=== PATIENT | female | born 1985 | race African-American/Black ===

== ENCOUNTER 2019-07-30 12:41 | Emergency (ER) | payer SELFPAY ==
[2019-07-30] MEDS ORDERED: ONDANSETRON 4 MG TAB.RAPDIS PO ONE (13:25)
--- NOTE | 2019-07-30 13:25 | ER Document Report ---
ED Medical Screen (RME) - General Chief Complaint: Abdominal Pain Stated Complaint: ABDOMINAL PAIN Time Seen by Provider: 07/30/19 13:19 Mode of Arrival: Ambulatory Information source: Patient Notes: 34-year-old female presented to ED for complaint of severe abdominal pain intermittently over the past couple months. She states nothing triggers the abdominal pain and is worse in her upper abdomen. She states she has a past medical history of bilateral tubal Gratian uterine ablation gastric sleeve bipolar depression anxiety and ventral hernia repair. Patient is alert oriented respirations regular nonlabored speaking in full sentences. Abdomen is soft at this time. I have greeted and performed a rapid initial assessment of this patient. A comprehensive ED assessment and evaluation of the patient, analysis of test results and completion of medical decision making process will be conducted by an additional ED providers. - Related Data Allergies/Adverse Reactions: No Known Allergies Allergy (Verified 04/17/13 10:02) Past Medical History - Past Medical History Cardiac Medical History: Denies: Hx Coronary Artery Disease, Hx Heart Attack, Hx Hypertension Pulmonary Medical History: Denies: Hx Asthma, Hx Bronchitis, Hx COPD, Hx Pneumonia, Hx Tuberculosis Neurological Medical History: Denies: Hx Cerebrovascular Accident, Hx Seizures. Comment Only: Hx Migraine - not diagnosed, but pt c/o frequent headaches GI Medical History: Musculoskeltal Medical History: Denies Hx Arthritis Infectious Medical History: Past Surgical History: Reports: Hx Abdominal Surgery - Hernia repair, Hx Herniorrhaphy - Umbilical, Hx Tubal Ligation - BTL 2006. Denies: Hx Pacemaker - Immunizations Hx Diphtheria, Pertussis, Tetanus Vaccination: No Physical Exam - Vital signs Vitals: Temp Pulse Resp BP Pulse Ox 98.1 F 69 18 144/74 H 100 07/30/19 12:57 07/30/19 12:57 07/30/19 12:57 07/30/19 12:57 07/30/19 12:57 Course - Vital Signs Vital signs: Temp Pulse Resp BP Pulse Ox 98.1 F 69 18 144/74 H 100 07/30/19 13:19 07/30/19 12:57 07/30/19 12:57 07/30/19 12:57 07/30/19 12:57
[2019-07-30 13:42] LABS: ABSOLUTE BASOPHILS # (AUTO) 0.1 10^3/uL (0.0-0.2); ABSOLUTE EOSINOPHILS # (AUTO) 0.1 10^3/uL (0.0-0.6); ABSOLUTE LYMPHOCYTES (AUTO) 2.3 10^3/uL (0.5-4.7); ABSOLUTE MONOCYTES (AUTO) 0.5 10^3/uL (0.1-1.4); ABSOLUTE NEUT (AUTO) 4.3 10^3/uL (1.7-8.2); BASOPHILS % (AUTO) 1.1 % (0-2); HEMATOCRIT 39.9 % (36.0-47.0); HEMOGLOBIN 13.2 g/dL (12.0-15.5); LYMPHOCYTES % (AUTO) 31.7 % (13-45); MEAN CORPUSCULAR HEMOGLOBIN 24.7 pg (27.0-33.4); MEAN CORPUSCULAR VOLUME 75 fl (80-97); MONOCYTES % (AUTO) 6.4 % (3-13); PLATELET COUNT 301 10^3/uL (150-450); RED BLOOD COUNT 5.35 10^6/uL (3.72-5.28); SEGMENTED NEUTROPHILS % (AUTO) 59.8 % (42-78); TOTAL CELLS COUNTED % (AUTO) 100 %; WHITE BLOOD COUNT 7.2 10^3/uL (4.0-10.5)
[2019-07-30 13:48] LABS: APPEARANCE,URINE SLIGHTLY-CLOUDY; BILIRUBIN,URINE NEGATIVE (NEGATIVE); COLOR,URINE YELLOW; GLUCOSE, URINE NEGATIVE (NEGATIVE); KETONES,URINE NEGATIVE (NEGATIVE); PROTEIN,URINE NEGATIVE (NEGATIVE); URINE SPECIFIC GRAVITY 1.024; UROBILINOGEN,URINE NEGATIVE mg/dL (<2.0)
--- NOTE | 2019-07-30 13:53 | RADIOLOGY REPORT (SQ) ---
EXAM DESCRIPTION: KUB/ABDOMEN (SINGLE VIEW) IMAGES COMPLETED DATE/TIME: 07/30/2019 1:41 pm REASON FOR STUDY: Intermittent abdominal pain COMPARISON: None. NUMBER OF VIEWS: One view. TECHNIQUE: Supine radiographic image of the abdomen acquired. LIMITATIONS: None. FINDINGS: BOWEL GAS PATTERN: Normal bowel gas pattern. No dilated loops. CALCIFICATIONS: No suspicious calcifications. SOFT TISSUES: No gross mass or suggestion of organomegaly. HARDWARE: None in the abdomen. BONES: No acute fracture. No worrisome bone lesions. OTHER: No other significant finding. IMPRESSION: NO RADIOGRAPHIC EVIDENCE FOR ACUTE ABDOMINAL DISEASE. TECHNICAL DOCUMENTATION: JOB ID: [id number] 2010 [employer]- All Rights Reserved Reading location - IP/workstation name: [email or web address]
[2019-07-30 14:05] LABS: ALBUMIN 3.8 g/dL (3.5-5.0); ALKALINE PHOSPHATASE 83 U/L (38-126); ANION GAP 5 (5-19); ASPARTATE AMINO TRANSFERASE 62 U/L (14-36); BILIRUBIN,TOTAL 0.5 mg/dL (0.2-1.3); BLOOD UREA NITROGEN 14 mg/dL (7-20); CALCIUM 9.4 mg/dL (8.4-10.2); CARBON DIOXIDE 29 mmol/L (22-30); CHLORIDE 104 mmol/L (98-107); GLUCOSE 108 mg/dL (75-110); POTASSIUM 4.5 mmol/L (3.6-5.0)
--- NOTE | 2019-07-30 15:27 | ER Document Report ---
ED General - General Chief Complaint: Abdominal Pain Stated Complaint: ABDOMINAL PAIN Time Seen by Provider: 07/30/19 13:19 Mode of Arrival: Ambulatory Notes: 34-year-old female presents emergency department complaining of intermittent epigastric pain that is been going on for the past several months. States that it will last 30 minutes to an hour and then resolved. Patient states that today it is been going on intermittently for approximately 24 hours and radiates to her right flank. States that when she lifts up her arm it makes it feel somewhat better however starting last night he ate was associated with some tingling to her right arm although when she lifts her arms over her head it does feel better. The tingling in her right arm worsened when she left arm over her head and improved when she put her arm back down. Patient states she is tried a multitude of lkzh-jhe-uyafond medications including ibuprofen, acetaminophen and duplex without relief. States it does not get better with bowel movements although she feels it is likely related to her chronic constipation. Patient states that yesterday she asked a friend for additional pain medication was given hydrocodone. States the hydrocodone did not help. Admits nausea and headache, denies vomiting, diarrhea, dysuria or fevers. - Related Data Allergies/Adverse Reactions: No Known Allergies Allergy (Verified 04/17/13 10:02) Past Medical History - General Information source: Patient - Social History Smoking Status: Never Smoker Frequency of alcohol use: Occasional Drug Abuse: None Family History: Reviewed & Not Pertinent Patient has suicidal ideation: No Patient has homicidal ideation: No - Past Medical History Cardiac Medical History: Denies: Hx Coronary Artery Disease, Hx Heart Attack, Hx Hypertension Pulmonary Medical History: Denies: Hx Asthma, Hx Bronchitis, Hx COPD, Hx Pneumonia, Hx Tuberculosis Neurological Medical History: Denies: Hx Cerebrovascular Accident, Hx Seizures. Comment Only: Hx Migraine - not diagnosed, but pt c/o frequent headaches GI Medical History: Musculoskeletal Medical History: Denies Hx Arthritis Infectious Medical History: Past Surgical History: Reports: Hx Abdominal Surgery - Hernia repair, Hx Herniorrhaphy - Umbilical, Hx Tubal Ligation. Denies: Hx Pacemaker - Immunizations Hx Diphtheria, Pertussis, Tetanus Vaccination: No Review of Systems - Review of Systems Constitutional: No symptoms reported EENT: No symptoms reported Respiratory: denies: Stridor Gastrointestinal: See HPI, Abdominal pain, Nausea, Constipation Neurological/Psychological: See HPI, Tingling -: Yes All other systems reviewed and negative Physical Exam - Vital signs Vitals: Temp Pulse Resp BP Pulse Ox 98.1 F 69 18 144/74 H 100 07/30/19 12:57 07/30/19 12:57 07/30/19 12:57 07/30/19 12:57 07/30/19 12:57 Interpretation: Normal - Notes Notes: GENERAL: Alert, interacts well. No acute distress. HEAD: Normocephalic, atraumatic EYES: Pupils equal, round and reactive to light, extraocular movements intact. ENT: Oral mucosa moist, tongue midline. NECK: Full range of motion, supple, trachea midline. LUNGS: Clear to auscultation bilaterally, no wheezes, rales or rhonchi, no respiratory distress. HEART: Regular rate and rhythm, no murmurs, gallops, rubs. ABDOMEN: Soft, nontender, nondistended, bowel sounds present in all 4 quadrants. EXTREMITIES: Moves all 4 extremities spontaneously, no edema, radial and dorsalis pedis pulses 2/4 bilaterally. No cyanosis. NEUROLOGICAL: Alert and oriented x3, normal speech, biceps and patellar DTRs 2+ bilaterally. PSYCH: Normal mood, normal affect. SKIN: Warm, Dry, normal turgor, no rashes or lesions noted. Course - Re-evaluation Re-evalutation: 07/30/19 15:49 CBC unremarkable, CMP shows minimally elevated AST and ALT, test negative, urinalysis unremarkable, lipase normal. KUB does not show massive amount of stool or obstruction. Pain has been going on intermittently for m onths, relatively unchanged today. Abdomen is nontender palpation. Patient will be discharged home, encouraged to take Pepcid and MiraLAX, follow-up with GI as an outpatient. - Vital Signs Vital signs: Temp Pulse Resp BP Pulse Ox 98.1 F 69 18 144/74 H 100 07/30/19 13:19 07/30/19 12:57 07/30/19 12:57 07/30/19 12:57 07/30/19 12:57 - Laboratory Result Diagrams: 07/30/19 13:30 07/30/19 13:30 Laboratory results interpreted by me: 07/30/19 07/30/19 13:30 13:30 RBC 5.35 H MCV 75 L MCH 24.7 L RDW 16.0 H AST 62 H ALT 78 H Discharge - Discharge Clinical Impression: Chronic epigastric pain Condition: Stable Disposition: HOME, SELF-CARE Additional Instructions: It is very reassuring that this pain has been going on for several months and it has not become more severe. Please dissolve 1 scoop of MiraLAX in a glass of water once a day to treat constipation. You may increase to twice a day if needed to create soft bowel movements and you may decrease to every other day if you develop diarrhea. Please take an dzwx-jrw-uedstmc acid antacid such as Pepcid 20 mg twice a day for the next month. If it does not improve your pain you may stop after a month. I want you to keep a symptom diary as well as a food diary. I want you to call GI to arrange a follow-up appointment as an outpatient. Please take the symptoms/food diary with you to the appointment. Abdominal Pain There are many causes of abdominal pain. Pain can mean a serious problem requiring surgery (such as appendicitis). It can also be an innocent problem that goes away on its own (such as a viral infection). Often, time must pass to determine the cause of pain. The physician does not feel that hospitalization is necessary, at present. Things may change within the next 24 hours. Call the doctor or come back for re- examination if any problems occur, such as: (1) Pain that becomes more severe, steady, or becomes concentrated in one specific area. Also, pain that is more severe with movement or coughing. (2) Vomiting that persists or becomes more frequent. (3) Blood in the vomitus, urine, or bowel movements. Blood in the stool may have a tarry or black appearance. (4) Shaking chills or fever greater than 100 degrees F. (5) The abdomen becomes more distended or swollen. (6) Bowel movements cease. (7) Failure to improve as expected. Prescriptions: Polyethylene Glycol 3350 [Miralax] 1 cap PO BID 30 Days powder Famotidine [Pepcid 20 mg Tablet] 20 mg PO BID #60 tablet Referrals: DAMON CAUSEY MD [ACTIVE STAFF] - Follow up as needed
[2019-07-30 16:24] VITALS: BP 144/87
== END 2019-07-30 16:23 | disposition home or self-care (01) ==
LOC: ER 12:41
DX: K59.09 Other constipation (principal); R10.13 Epigastric pain; G89.29 Other chronic pain; R20.2 Paresthesia of skin; R11.0 Nausea; R51 Headache; R74.0 Nonspecific elevation of levels of transaminase and lactic acid dehydrogenase [LDH]
CPT/HCPCS: 99284; 36415; 83690; 85025; 81025; 80053; 81001; 74018; S0119

== ENCOUNTER 2020-02-10 09:20 | Emergency (ER) | payer SELFPAY ==
[2020-02-10] MEDS ORDERED: ONDANSETRON HCL INJ/PF 4 MG/2 ML SDV IV ONE (10:17)
[2020-02-10] MEDS ORDERED: NORMAL SALINE 1000 ML 1,000 ML IV ONE (10:17)
[2020-02-10] MEDS ORDERED: MORPHINE SULFATE 10 MG/ML INJ IV ONE (10:17)
--- NOTE | 2020-02-10 10:57 | ER Document Report ---
ED General - General Chief Complaint: Upper Abdominal Pain Stated Complaint: ABDOMINAL PAIN Time Seen by Provider: 02/10/20 09:57 Mode of Arrival: Ambulatory Information source: Patient - HPI Notes: Patient complains of several months of upper abdominal pain. This pain radiates to her chest. Nothing makes it better or worse. She is unsure of what may have caused the pain. She states that today at work became unbearable so she came to emergency department. She has had no nausea or vomiting. No trouble stools. Noted with urine. States she is not does not take any type of hormones. No known previous history of deep venous thrombosis or pulmonary embolisms. No cardiac history. She denies any type of cough cold or congestion. She has had a gastric sleeve surgery in the past. She has not had any complications of the surgery to this point. The pain is a sharp pain and also a "spasm". It does radiate across her upper abdomen and also into her chest. It is also a tight sensation. She does feel somewhat short of breath when she has the pain. It is moderate to severe and intermittent. - Related Data Allergies/Adverse Reactions: No Known Allergies Allergy (Verified 02/10/20 10:35) Past Medical History - General Information source: Patient - Social History Smoking Status: Never Smoker Frequency of alcohol use: None Drug Abuse: None Family History: Reviewed & Not Pertinent - Past Medical History Cardiac Medical History: Denies: Hx Coronary Artery Disease, Hx Heart Attack, Hx Hypertension Pulmonary Medical History: Denies: Hx Asthma, Hx Bronchitis, Hx COPD, Hx Pneumonia, Hx Tuberculosis Neurological Medical History: Denies: Hx Cerebrovascular Accident, Hx Seizures. Comment Only: Hx Migraine - not diagnosed, but pt c/o frequent headaches GI Medical History: Musculoskeletal Medical History: Denies Hx Arthritis Psychiatric Medical History: Reports: Hx Bipolar Disorder, Hx Depression Infectious Medical History: Past Surgical History: Reports: Hx Abdominal Surgery - Hernia repair, Hx Cholecystectomy, Hx Herniorrhaphy - Umbilical, Hx Tubal Ligation. Denies: Hx Pacemaker - Immunizations Hx Diphtheria, Pertussis, Tetanus Vaccination: No Review of Systems - Review of Systems Constitutional: denies: Chills, Fever Cardiovascular: Chest pain. denies: Palpitations Respiratory: Short of breath. denies: Cough -: Yes All other systems reviewed and negative Physical Exam - Vital signs Vitals: Temp Pulse Resp BP Pulse Ox 98.6 F 78 18 143/92 H 100 02/10/20 09:25 02/10/20 09:25 02/10/20 09:25 02/10/20 09:25 02/10/20 09:25 Interpretation: Normal - General General appearance: Appears well, Alert - HEENT Head: Normocephalic, Atraumatic Eyes: Normal Pupils: PERRL - Respiratory Respiratory status: No respiratory distress Chest status: Nontender Breath sounds: Normal Chest palpation: Normal - Cardiovascular Rhythm: Regular Heart sounds: Normal auscultation Murmur: No - Abdominal Inspection: Normal Distension: No distension Bowel sounds: Normal Tenderness: Tender - mild upper abd, no rebound/guardiing Organomegaly: No organomegaly - Back Back: Normal, Nontender - Extremities General upper extremity: Normal inspection, Nontender, Normal color, Normal ROM, Normal temperature General lower extremity: Normal inspection, Nontender, Normal color, Normal ROM, Normal temperature, Normal weight bearing. No: Saima's sign - Neurological Neuro grossly intact: Yes Cognition: Normal Orientation: AAOx4 Derrek Coma Scale Eye Opening: Spontaneous Derrek Coma Scale Verbal: Oriented Derrek Coma Scale Motor: Obeys Commands Sharon Coma Scale Total: 15 Speech: Normal Motor strength normal: LUE, RUE, LLE, RLE Sensory: Normal - Psychological Associated symptoms: Normal affect, Normal mood - Skin Skin Temperature: Warm Skin Moisture: Dry Skin Color: Normal Course - Re-evaluation Re-evalutation: 02/10/20 14:16 Patient presents with epigastric pain. She does have a mild elevation of her lipase consistent with a mild pancreatitis. However I do not feel the patient requires admission to the hospital. I will send the patient home with pain medication recommendations for clear liquid diet and follow-up with her gastric surgeon. - Vital Signs Vital signs: Temp Pulse Resp BP Pulse Ox 98.6 F 78 26 H 138/88 H 99 02/10/20 09:25 02/10/20 09:25 02/10/20 13:00 02/10/20 12:01 02/10/20 13:00 - Laboratory Result Diagrams: 02/10/20 11:22 02/10/20 11:22 Laboratory results interpreted by me: 02/10/20 02/10/20 11:22 11:22 RBC 5.35 H MCV 74 L MCH 24.0 L RDW 15.5 H AST 81 H Lipase 418.6 H - Diagnostic Test Radiology reviewed: Image reviewed, Reports reviewed Discharge - Discharge Clinical Impression: Pancreatitis Qualifiers: Chronicity: acute Pancreatitis type: idiopathic Acute pancreatitis complication: no infection or necrosis Qualified Code(s): K85.00 - Idiopathic acute pancreatitis without necrosis or infection Condition: Stable Disposition: HOME, SELF-CARE Instructions: Pancreatitis ([facility]) Additional Instructions: clear liquid diet for 48 hours. Call your gastric sleeve surgeon as soon as possible to arrange follow up Prescriptions: Hydrocodone/Acetaminophen [[place] [facility] 5-325 mg Tablet] 1 tab PO Q6 PRN 3 Days #12 tablet PRN Reason: For Pain Ondansetron [Zofran Odt 4 mg Tablet] 1 - 2 tab PO Q4H PRN #15 tab.rapdis PRN Reason: For Nausea/Vomiting Forms: Return to Work
[2020-02-10 11:45] LABS: ABSOLUTE BASOPHILS # (AUTO) 0.1 10^3/uL (0.0-0.2); ABSOLUTE EOSINOPHILS # (AUTO) 0.1 10^3/uL (0.0-0.6); ABSOLUTE LYMPHOCYTES (AUTO) 1.7 10^3/uL (0.5-4.7); ABSOLUTE MONOCYTES (AUTO) 0.4 10^3/uL (0.1-1.4); ABSOLUTE NEUT (AUTO) 6.6 10^3/uL (1.7-8.2); EOSINOPHILS % (AUTO) 0.9 % (0-6); HEMATOCRIT 39.7 % (36.0-47.0); HEMOGLOBIN 12.8 g/dL (12.0-15.5); MEAN CORPUSCULAR HGB CONC 32.4 g/dL (32.0-36.0); MEAN CORPUSCULAR VOLUME 74 fl (80-97); MONOCYTES % (AUTO) 4.7 % (3-13); PLATELET COUNT 307 10^3/uL (150-450); RED BLOOD COUNT 5.35 10^6/uL (3.72-5.28); RED CELL DISTRIBUTION WIDTH 15.5 % (11.5-14.0); SEGMENTED NEUTROPHILS % (AUTO) 74.4 % (42-78); TOTAL CELLS COUNTED % (AUTO) 100 %; WHITE BLOOD COUNT 8.9 10^3/uL (4.0-10.5)
[2020-02-10 12:06] LABS: ALKALINE PHOSPHATASE 111 U/L (38-126); ANION GAP 8 (5-19); ASPARTATE AMINO TRANSFERASE 81 U/L (14-36); BILIRUBIN,DIRECT 0.1 mg/dL (0.0-0.4); BILIRUBIN,TOTAL 0.4 mg/dL (0.2-1.3); BLOOD UREA NITROGEN 12 mg/dL (7-20); CALCIUM 9.4 mg/dL (8.4-10.2); CARBON DIOXIDE 27 mmol/L (22-30); CHLORIDE 105 mmol/L (98-107); GLUCOSE 98 mg/dL (75-110); POTASSIUM 4.5 mmol/L (3.6-5.0); TOTAL PROTEIN 7.2 g/dL (6.3-8.2)
[2020-02-10 12:23] LABS: APPEARANCE,URINE CLEAR; BILIRUBIN,URINE NEGATIVE (NEGATIVE); COLOR,URINE YELLOW; GLUCOSE, URINE NEGATIVE (NEGATIVE); KETONES,URINE NEGATIVE (NEGATIVE); PROTEIN,URINE NEGATIVE (NEGATIVE); URINE SPECIFIC GRAVITY 1.017; UROBILINOGEN,URINE NEGATIVE mg/dL (<2.0)
[2020-02-10 14:39] VITALS: BP 127/96
--- NOTE | 2020-02-10 15:36 | RADIOLOGY REPORT (SQ) ---
EXAM DESCRIPTION: CTA CHEST IMAGES COMPLETED DATE/TIME: 02/10/2020 1:33 pm REASON FOR STUDY: chest pain COMPARISON: None. TECHNIQUE: CT scan of the chest performed using helical scanning technique with dynamic intravenous contrast injection. Images reviewed with lung, soft tissue and bone windows. Reconstructed coronal and sagittal MPR images reviewed. Additional 3 dimensional post-processing performed to develop Maximal Intensity Projection images (TX P). All images stored on PACS. All CT scanners at this facility use dose modulation, iterative reconstruction, and/or weight based d osing when appropriate to reduce radiation dose to as low as reasonably achievable (ALARA). [facility]: Dose Right [facility]: CareDose [facility]: Dose Right [facility]: Teradose 4D [facility]: Smart AdvanDx RENAL FUNCTION: GFR > 60. RADIATION DOSE: . LIMITATIONS: None. FINDINGS: LUNGS AND PLEURA: No masses, infiltrates, or pneumothorax. No pleural effusions or pleura l calcifications. AORTA AND GREAT VESSELS: No aneurysm. No dissection. HEART: No pericardial effusion. Cardiomegaly. PULMONARY ARTERIES: No emboli visualized in the main pulmonary arteries or the segmental branches. HILAR AND MEDIASTINAL STRUCTURES: No identified masses or abnormal nodes. HARDWARE: None in the chest. UPPER ABDOMEN: See separate report of the CT of the abdomen. THYROID AND OTHER SOFT TISSUES: No masses. No adenopathy. BONES: No acute or significant finding. 3D MIPS: Confirm above findings. OTHER: No other significant finding. IMPRESSION: No PE. No acute findings. COMMENT: Quality ID # [id number]: Final reports with documentation of one or more dose reduction techniques (e.g., Automated exposure control, adjustment of the mA and/or kV according to patient size, use of iterative reconstruction technique) TECHNICAL DOCUMENTATION: JOB ID: [id number] 2010 [employer]- All Rights Reserved Reading location - IP/workstation name: [email or web address]
--- NOTE | 2020-02-10 15:39 | RADIOLOGY REPORT (SQ) ---
EXAM DESCRIPTION: CT ABD/PELVIS WITH IV ORAL IMAGES COMPLETED DATE/TIME: 02/10/2020 1:33 pm REASON FOR STUDY: abd pain COMPARISON: None. TECHNIQUE: CT scan of the abdomen and pelvis performed using helical scanning technique with dynamic intravenous contrast injection. No oral contrast. Images reviewed with lung, soft tissue, and bone windows. Reconstructed coronal and sagittal MPR images reviewed. Delayed images for evaluation of the urinary system also acquired. All images stored on PACS. All CT scanners at this facility use dose modulation, iterative reconstruction, and/or weight based d osing when appropriate to reduce radiation dose to as low as reasonably achievable (ALARA). [facility]: Dose Right [facility]: CareDose [facility]: Dose Right [facility]: Teradose 4D [facility]: Smart [employer] RENAL FUNCTION: GFR > 60. RADIATION DOSE: . LIMITATIONS: None. FINDINGS: LOWER CHEST: See separate report of the CT of the chest. LIVER: Normal size. No masses. No dilated ducts. SPLEEN: Normal size. No focal lesions. PANCREAS: No masses. No significant calcifications. No adjacent inflammation or peripancreatic fluid collections. Pancreatic duct not dilated. GALLBLADDER: No identified stones by CT criteria. No inflammatory changes to suggest cholecystitis. ADRENAL GLANDS: No significant masses or asymmetry. RIGHT KIDNEY AND URETER: No solid masses. No significant calcifications. No hydronephrosis or hyd roureter. LEFT KIDNEY AND URETER: No solid masses. No significant calcifications. No hydronephrosis or hydr oureter. AORTA AND VESSELS: No aneurysm. No dissection. Renal arteries, SMA, celiac without stenosis. RETROPERITONEUM: No retroperitoneal adenopathy, hemorrhage or masses. BOWEL AND PERITONEAL CAVITY: Status post gastric bypass. No masses or inflammatory changes. No free fluid or peritoneal masses. APPENDIX: Normal. PELVIS: Small fibroids. No free fluid. Normal bladder. ABDOMINAL WALL: Prior anterior abdominal wall hernia repair. BONES: No significant or acute findings. OTHER: No other significant finding. IMPRESSION: No acute findings. TECHNICAL DOCUMENTATION: JOB ID: [id number] Quality ID # [id number]: Final reports with documentation of one or more dose reduction techniques (e.g., Au tomated exposure control, adjustment of the mA and/or kV according to patient size, use of iterative reconstruction technique) 2010 [employer]- All Rights Reserved Reading location - IP/workstation name: [email or web address]
== END 2020-02-10 14:38 | disposition home or self-care (01) ==
LOC: ER 09:20
DX: K85.00 Idiopathic acute pancreatitis without necrosis or infection (principal); R07.89 Other chest pain; R10.13 Epigastric pain; R06.02 Shortness of breath; Z98.84 Bariatric surgery status
CPT/HCPCS: 99285; 96361; 96374; 96375; 36415; 83690; 85025; 81025; 80053; 81001; 71275; 74177; J2270; J2405; J7030